=== PATIENT | male | born 1990 | race Two or more races ===

== ENCOUNTER 2020-03-24 08:56 | Emergency (ER) | payer OTHER ==
[2020-03-24 09:08] VITALS: BP 137/61; PULSE 79; TEMP 98.1; BMI 22.4
[2020-03-24] MEDS ORDERED: AZITHROMYCIN 500 MG TABLET PO ONE (09:37)
[2020-03-24] MEDS ORDERED: AZITHROMYCIN 500 MG TABLET ONE (09:55)
== END 2020-03-24 10:26 | disposition home or self-care (01) ==
LOC: JER 08:56 → JERFT 08:56
PROC: 3E023GC Introduction of Other Therapeutic Substance into Muscle, Percutaneous Approach (ICD-10-PCS; principal; 2020-03-24)
DX: Z20.2 Contact with and (suspected) exposure to infections with a predominantly sexual mode of transmission (principal)
CPT/HCPCS: 36415; 87491; 87591; 96372; 99284-25

== ENCOUNTER 2020-11-10 15:30 | Emergency (ER) | payer OTHER ==
[2020-11-10 15:37] VITALS: BP 115/68; PULSE 72; TEMP 97.7; BMI 23.0
[2020-11-10] MEDS ORDERED: DIPHTH,PERTUSS(ACELL),TET 0.5 ML DISP.SYRIN IM ONE ×2 (16:22→17:06)
[2020-11-10] MEDS ORDERED: KETOROLAC TROMETHAMINE 30 MG/1 ML VIAL IM ONE (16:22)
[2020-11-10] MEDS ORDERED: KETOROLAC TROMETHAMINE 30 MG/1 ML VIAL ONE (17:06)
== END 2020-11-10 17:51 | disposition home or self-care (01) ==
LOC: JERFT 15:30
PROC: 3E0233Z Introduction of Anti-inflammatory into Muscle, Percutaneous Approach (ICD-10-PCS; principal; 2020-11-10)
PROC: 3E0234Z Introduction of Serum, Toxoid and Vaccine into Muscle, Percutaneous Approach (ICD-10-PCS; 2020-11-10)
DX: L03.032 Cellulitis of left toe (principal)
CPT/HCPCS: 73630-TC-LT; 90471; 90715; 96372; 99284-25